=== PATIENT | male | born 1955 | race Caucasian/White ===

== ENCOUNTER 2019-08-19 14:06 | Emergency (ER) | payer SELFPAY ==
[2019-08-19] MEDS ORDERED: NITROGLYCERIN 0.4 MG 25 EA TAB SL ONE (14:14)
[2019-08-19] MEDS ORDERED: ASPIRIN TABLET 325 MG TAB PO ONE (14:19)
[2019-08-19] MEDS ORDERED: NITROGLYCERIN/D5W IV 50,000 MCG in PREMIX BOTTLE 1 BOTTLE IVS ONE (14:19)
[2019-08-19] MEDS ORDERED: CLOPIDOGREL 75 MG TAB PO ONE (14:19)
[2019-08-19] MEDS ORDERED: TENECTEPLASE 50 MG VIAL ONE (14:37)
--- NOTE | 2019-08-19 14:37 | RAD ---
EXAM DESCRIPTION: Chest,1 View CLINICAL HISTORY: 64 years Male, chest pain COMPARISON: None available. TECHNIQUE: AP radiograph of the chest was obtained. FINDINGS: Trachea is midline.The cardiomediastinal silhouette is normal in size. The pulmonary vasculature is within normal limits.The lungs are clear with no acute consolidation.No evidence of pleural effusions. Subacute left-sided rib fractures. IMPRESSION: No acute cardiopulmonary process. Electronically signed by: Aniyah Wheeler MD 08/19/2019 2:35 PM CDT
[2019-08-19] MEDS ORDERED: NITROGLYCERIN/D5W IV 250 ML IVS ONE (14:40)
[2019-08-19] MEDS ORDERED: HEPARIN SODIUM (PORCINE) 10,000 UNITS/ML VIAL ONE (14:41)
[2019-08-19] MEDS ORDERED: HEPARIN PREMIX 500 ML ONE (14:41)
[2019-08-19] MEDS ORDERED: TENECTEPLASE 50 MG VIAL IV ONE (14:59)
[2019-08-19] MEDS ORDERED: HEPARIN PREMIX 25,000 UNITS in PREMIX BAG 1 BAG IVS ONE (15:02)
--- NOTE | 2019-08-19 15:09 | ED.PDOC ---
History of Present Illness - General Chief Complaint: Chest Pain/TX Stated Complaint: CP radiating to L shoudler and jaws Time Seen by Provider: 08/19/19 14:12 Exam Limitations: no limitations - History of Present Illness Initial Comments: The patient is a 64-year-old male presented emergency room secondary to chest pain. He has had intermittent chest pain since last night. It is currently severe 8 out of 10. He does feel short of breath. No history of any cardiac, aortic or pulmonary emboli history. No fever. He does have a history of asthma. No syncope. He does not smoke. He did in the distant past. He denies drug use. Chest pain is substernal. It is worse with some activity. Again this to started last night. Timing/Duration: getting worse, other - 16 hours intermittent Severity: severe Improving Factors: medication - Nitro Worsening Factors: movement Associated Symptoms: chest pain, shortness of breath Allergies/Adverse Reactions: Allergies NO KNOWN ALLERGY Allergy (Verified 08/19/19 14:28) Home Medications: Ambulatory Orders Albuterol Inhaler [Ventolin Hfa Inhaler] 1 puff INH PRN PRN 01/15/16 Multiple Vitamins W/ Minerals [Centrum Silver] 1 tab PO DAILY 01/15/16 Review of Systems - Review of Systems Constitutional: States: diaphoresis EENTM: States: no symptoms reported Respiratory: States: short of breath Cardiology: States: chest pain Gastrointestinal/Abdominal: States: no symptoms reported Genitourinary: States: no symptoms reported Musculoskeletal: States: no symptoms reported Skin: States: no symptoms reported Neurological: States: no symptoms reported Endocrine: States: no symptoms reported All other Systems: No Change from Baseline Past Medical History (General) - Patient Medical History Hx Seizures: No Hx Stroke: No Hx Dementia: No Hx Asthma: Yes Hx of COPD: No Hx Cardiac Disorders: No Hx Congestive Heart Failure: No Hx Pacemaker: No Hx Hypertension: No Hx Thyroid Disease: No Hx Diabetes: No Hx Gastroesophageal Reflux: No Hx Renal Disease: No Hx Cancer: No Hx of HIV: No Hx Hepatitis C: No Hx MRSA: No Surgical History: appendectomy - Vaccination History Hx Tetanus, Diphtheria Vaccination: Yes - in the last 5 years from 2016 Hx Influenza Vaccination: No Hx Pneumococcal Vaccination: No - Social History Hx Tobacco Use: No Hx Alcohol Use: Yes Hx Substance Use: No Hx Substance Use Treatment: No Hx Depression: No - Female History Patient is a Female of Child Bearing Age (10 -59 yrs old): No Patient : No Family Medical History - Family History Mother Family History: No Known Living Status: Still Living Physical Exam - Physical Exam General Appearance: Alert, Obvious distress, Ill Appearing Eye Exam: bilateral normal Ears, Nose, Throat: hearing grossly normal, normal ENT inspection Neck: full range of motion, supple, other - The patient does have significant JVD Respiratory: lungs clear, no respiratory distress, no accessory muscle use, other - The mild scattered wheezing Cardiovascular/Chest: normal peripheral pulses, regular rate, rhythm, no edema Peripheral Pulses: radial,right: 2+, radial,left: 2+ Gastrointestinal/Abdominal: non tender, soft Rectal Exam: deferred Back Exam: no CVA tenderness, no vertebral tenderness Extremity: normal range of motion, non-tender, normal inspection, no pedal edema, normal capillary refill 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 Progress - Progress Progress: 08/19/19 15:10 The patient is a 64-year-old male presented emergency room secondary to an acute ST segment elevation myocardial infarction. The patient was defibrillated during the incident of V. fib. He immediately received a dose of TNKase after and IV heparin. He has been started on a nitroglycerin drip. He reports he is currently having no chest pain. He is receiving supplemental oxygen. He has received aspirin. He has not yet received any Plavix. He is not on any antiarrhythmics currently. The patient is being transferred to [facility] for higher level of care. 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 Vital signs are remaining stable. The patient is going by helicopter. Critical care time spent is [address] elevation myocardial infarction with associated life-threatening arrhythmia. - Results/Orders Results/Orders: 08/19/19 14:19 Nitroglycerin/D5w IV 50,000 mcg Premix Bottle 1 bottle IVS ONCE 05/01/20 14:30 EKG STAT 08/19/19 15:00 EKG STAT Laboratory Results - last 24 hr 08/19/19 08/19/19 08/19/19 14:23 14:23 14:23 WBC 7.9 RBC 5.00 Hgb 15.0 Hct 45.4 MCV 90.7 MCH 30.1 MCHC 33.1 RDW 14.5 Plt Count 292 MPV 8.1 Absolute Neuts (auto) 5.50 Absolute Lymphs (auto) 1.10 Absolute Monos (auto) 0.90 H Absolute Eos (auto) 0.30 Absolute Basos (auto) 0.10 Neutrophils % 69.6 Lymphocytes % 13.6 L Monocytes % 11.5 H Eosinophils % 4.0 Basophils % 1.3 PT 9.7 INR < 1.00 PTT (SP) 21.9 D-Dimer, Quantitative 149 Sodium 139 Potassium 4.1 Chloride 108 Carbon Dioxide 23 Anion Gap 12.1 BUN 16 Creatinine 0.98 BUN/Creatinine Ratio 16.3 Random Glucose 92 Serum Osmolality 278.4 Calcium 9.2 Magnesium 1.8 Total Bilirubin 0.5 AST 30 ALT 18 Alkaline Phosphatase 58 Creatine Kinase 219 H* CK-MB (CK-2) 27.8 H* CK-MB (CK-2) % 12.69 H Troponin I 0.79 H* B-Natriuretic Peptide 16.1 Serum Total Protein 6.9 Albumin 3.9 Globulin 3.0 Albumin/Globulin Ratio 1.3 Initial EKG shows slight ST elevation in inferior leads as well as ST depression and most lateral leads. Normal sinus rhythm. On telemetry patient went into V. tach and then V. fib over the course of less than a minute. Final read on chest x-ray is still pending however I see no evidence of any overt pneumonia, obvious fluid overload or pneumothorax. Departure - Departure Clinical Impression: Ventricular fibrillation ST elevation myocardial infarction (STEMI) Qualifiers: Involved coronary artery: unspecified coronary artery Qualified Code(s): I21.3 - ST elevation (STEMI) myocardial infarction of unspecified site Disposition: Transfer to Hospital Condition: Poor Departure Forms: ED Discharge - Pt. Copy, Patient Portal Self Enrollment Referrals: Juan A Nielson MD [Primary Care Provider] - 1-2 Weeks Home Medications: Ambulatory Orders Albuterol Inhaler [Ventolin Hfa Inhaler] 1 puff INH PRN PRN 09/27/16 Multiple Vitamins W/ Minerals [Centrum Silver] 1 tab PO DAILY 01/15/16 Transfer to Outside Facility - Transfer Information Decision to Transfer Date: 08/19/19 Decision to Transfer Time: 15:12 Reason for Transfer: required specialist not available Accepting Provider:: dr briones/jose Accepting Facility: [facility]
[2019-08-19] MEDS ORDERED: HEPARIN SODIUM (PORCINE) 5,000 U/ML VIAL IV ONE ×2 (15:13→15:17)
[2019-08-19] MEDS: NITROGLYCERIN 0.4 MG 25 EA TAB SL ONE (15:16)
[2019-08-19 16:22] VITALS: BP 123/52; TEMP 97.6; O2SAT 92
== END 2019-08-19 16:00 | disposition short-term general hospital (02) ==
LOC: ER 14:06
DX: I49.01 Ventricular fibrillation (principal); I21.3 ST elevation (STEMI) myocardial infarction of unspecified site; J45.909 Unspecified asthma, uncomplicated
CPT/HCPCS: 36415; 71045; 80053; 82550; 82553; 83735; 83880; 84484; 85025; 85379; 85610; 85730; 93005; J1644; J3101

== ENCOUNTER 2019-09-07 13:56 | Emergency (ER) | payer SELFPAY ==
--- NOTE | 2019-09-07 14:09 | ED.PDOC ---
History of Present Illness - General Time Seen by Provider: 09/07/19 14:05 Source: patient, RN notes reviewed, Vital Signs reviewed Exam Limitations: no limitations - History of Present Illness Initial Comments: 64 y/o male with STEMI and RCA stents x 3 two weeks ago presents to the ER with weakness, feeling like he is going to black out, and nausea. 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 He said it went fairly well but later became very nauseated. He says he has been taking his medications as directed. Currently doesn't smoke, drink, or use illicit drugs. Timing/Duration: 24 hours Severity: moderate Location: other - back of neck feels tight, feels like he will pass out Activities at Onset: activity Prior Chest Pain/Cardiac Workup: cardiac cath, heart attack - 2 weeks ago Improving Factors: rest Worsening Factors: other - standing after sitting or laying Nitro Today/Relief: 0.4 mg x 3, no relief Aspirin Treatment Today: 81 mg x 1 Associated Symptoms: nausea/vomiting - no vomiting, feels faint Allergies/Adverse Reactions: Allergies NO KNOWN ALLERGY Allergy (Verified 08/19/19 14:28) Home Medications: Ambulatory Orders Albuterol Inhaler [Ventolin Hfa Inhaler] 1 puff INH PRN PRN 01/15/16 Multiple Vitamins W/ Minerals [Centrum Silver] 1 tab PO DAILY 01/15/16 Aspirin [Aspirin Childrens] PO DAILY 09/07/19 Carvedilol PO DAILY 09/07/19 Lisinopril PO DAILY 09/07/19 Review of Systems - Review of Systems Constitutional: States: weakness EENTM: States: no symptoms reported Respiratory: States: no symptoms reported Cardiology: States: syncope - presyncope Gastrointestinal/Abdominal: States: nausea Genitourinary: States: no symptoms reported Musculoskeletal: States: neck pain - tightness Skin: States: no symptoms reported, other Neurological: States: weakness Past Medical History (General) - Patient Medical History Hx Seizures: No Hx Stroke: No Hx Dementia: No Hx Asthma: Yes Hx of COPD: No Hx Cardiac Disorders: No Hx Congestive Heart Failure: No Hx Pacemaker: No Hx Hypertension: No Hx Thyroid Disease: No Hx Diabetes: No Hx Gastroesophageal Reflux: No Hx Renal Disease: No Hx Cancer: No Hx of HIV: No Hx Hepatitis C: No Hx MRSA: No - Vaccination History Hx Tetanus, Diphtheria Vaccination: Yes - in the last 5 years from 2016 Hx Influenza Vaccination: No Hx Pneumococcal Vaccination: No - Social History Hx Tobacco Use: No Hx Alcohol Use: Yes Hx Substance Use: No Hx Substance Use Treatment: No Hx Depression: No - Female History Patient : No Family Medical History - Family History Mother Family History: No Known Living Status: Still Living Physical Exam - Physical Exam General Appearance: Anxious, Frail, No apparent distress Eyes, Ears, Nose, Throat Exam: PERRL/EOMI, normal ENT inspection Neck: full range of motion, supple Respiratory: chest non-tender, lungs clear, normal breath sounds, no respiratory distress, no accessory muscle use Cardiovascular/Chest: regular rate, rhythm, no edema, no JVD, no murmur Gastrointestinal/Abdominal: normal bowel sounds, non tender, soft, no organomegaly, no pulsatile mass Extremity: normal range of motion, non-tender, no pedal edema, no calf tenderness Skin Exam: rash - ecchymosis R humerus area Progress - Progress Progress: 09/07/19 14:19 Now patient says he had sex after taking viagra and then when he had neck pain/tightness he took ntg 09/07/19 15:11 Creatinine 0.98 on 08/19/19 and today it is 2.46 09/07/19 15:14 updated patient about renal failure and elevated troponin - Results/Orders Results/Orders: 1402 EKG NSR rate 73, no ST abnormalities, no STEMI, L atrial enlargement, QTc 429 Departure - Departure Clinical Impression: Hypotension due to drugs, Dehydration after exertion, JANIS (acute kidney injury), Stented coronary artery Disposition: Admit Patient Condition: Fair Referrals: Juan A Nielson MD [Primary Care Provider] - 1-2 Weeks Home Medications: Ambulatory Orders Albuterol Inhaler [Ventolin Hfa Inhaler] 1 puff INH PRN PRN 01/15/16 Multiple Vitamins W/ Minerals [Centrum Silver] 1 tab PO DAILY 01/15/16 Aspirin [Aspirin Childrens] PO DAILY 09/07/19 Carvedilol PO DAILY 09/07/19 Lisinopril PO DAILY 09/07/19
[2019-09-07 14:23] VITALS: TEMP 97.8
[2019-09-07] MEDS: SODIUM CHLORIDE 0.9% 1000ML 1,000 ML IVS PRN (14:30)
[2019-09-07] MEDS: ONDANSETRON INJ 4 MG/2 ML VIAL IV ONE (14:31)
[2019-09-07] MEDS: SODIUM CHLORIDE 0.9% (FLUSH) 10 ML SYG IV PRN (14:31)
--- NOTE | 2019-09-07 14:40 | RAD ---
Study: Single Frontal Radiograph of the Chest. Indication:weakness, recent STEMI Comparison: August 19, 2019 Impression: Cardiomegaly. Mild left basilar atelectasis. Mild blunting left costophrenic angle which may reflect scarring or tiny pleural effusion. No pneumothorax. No acute osseous abnormality. Electronically signed by: Sergio Kulkarni MD 09/07/2019 2:39 PM CDT
[2019-09-07 16:58] VITALS: BP 128/71; O2SAT 96
== END 2019-09-07 16:48 | disposition home or self-care (01) ==
LOC: ER 13:56
DX: E86.0 Dehydration (principal); N17.9 Acute kidney failure, unspecified; I95.2 Hypotension due to drugs; I25.2 Old myocardial infarction; J45.909 Unspecified asthma, uncomplicated; Z79.82 Long term (current) use of aspirin; Z98.61 Coronary angioplasty status
CPT/HCPCS: 36415; 71045; 80048; 80076; 82550; 82553; 84484; 85025; 85610; 85730; 93005; 94760; A4216; J2405; J7030

== ENCOUNTER 2020-03-12 10:43 | Emergency (ER) | payer SELFPAY ==
[2020-03-12] MEDS ORDERED: SULFA/TRIMETH 800/160 (DS) TAB 1 EA TAB PO ONE (11:07)
[2020-03-12] MEDS ORDERED: AMOXICILLIN & POT CLAVULANATE 875 MG TAB PO ONE (11:08)
--- NOTE | 2020-03-12 11:10 | ED.PDOC ---
History of Present Illness - General Chief Complaint: General Stated Complaint: Leg pain Time Seen by Provider: 03/12/20 11:07 Source: patient Exam Limitations: no limitations - History of Present Illness Initial Comments: The patient is a 64-year-old male presented emergency room secondary to bilateral lower extremity cellulitis of about 2 to 3 days duration. He does have bilateral inguinal lymphadenopathy as well. There is no evidence of abscess formation and no open draining wound. He does have a dime size area of impetigo over the left bruno. No areas of infection otherwise. It is causing him some discomfort. He denies fevers. Timing/Duration: other - 3 days Severity: moderate Improving Factors: nothing Worsening Factors: nothing Associated Symptoms: denies symptoms Allergies/Adverse Reactions: Allergies NO KNOWN ALLERGY Allergy (Verified 08/19/19 14:28) Home Medications: Ambulatory Orders Albuterol Inhaler [Ventolin Hfa Inhaler] 1 puff INH PRN PRN 01/15/16 Multiple Vitamins W/ Minerals [Centrum Silver] 1 tab PO DAILY 01/15/16 Aspirin [Aspirin Childrens] PO DAILY 09/07/19 Carvedilol PO DAILY 09/07/19 Lisinopril PO DAILY 09/07/19 Amoxicillin & Pot Clavulanate [Augmentin Tab] 875 mg PO BID #20 tab 03/12/20 Sulfa/Trimeth 800/160 (Ds) Tab [Bactrim DS Tab] 1 ea PO BID #20 tab 03/12/20 Review of Systems - Review of Systems Constitutional: States: no symptoms reported EENTM: States: no symptoms reported Respiratory: States: no symptoms reported Cardiology: States: no symptoms reported Gastrointestinal/Abdominal: States: no symptoms reported Genitourinary: States: see HPI Musculoskeletal: States: no symptoms reported Skin: States: see HPI Neurological: States: no symptoms reported Endocrine: States: no symptoms reported All other Systems: No Change from Baseline Past Medical History (General) - Patient Medical History Hx Seizures: No Hx Stroke: No Hx Dementia: No Hx Asthma: Yes Hx of COPD: No Hx Cardiac Disorders: No Hx Congestive Heart Failure: No Hx Pacemaker: No Hx Hypertension: No Hx Thyroid Disease: No Hx Diabetes: No Hx Gastroesophageal Reflux: No Hx Renal Disease: No Hx Cancer: No Hx of HIV: No Hx Hepatitis C: No Hx MRSA: No - Vaccination History Hx Tetanus, Diphtheria Vaccination: Yes - in the last 5 years from 2016 Hx Influenza Vaccination: No Hx Pneumococcal Vaccination: No - Social History Hx Tobacco Use: No Hx Alcohol Use: Yes Hx Substance Use: No Hx Substance Use Treatment: No Hx Depression: No - Female History Patient : No Family Medical History - Family History Mother Family History: No Known Living Status: Still Living Physical Exam - Physical Exam General Appearance: Alert, No apparent distress Eye Exam: bilateral normal Ears, Nose, Throat: hearing grossly normal, normal pharynx Neck: non-tender, supple Respiratory: no respiratory distress, no accessory muscle use Cardiovascular/Chest: normal peripheral pulses, no edema Peripheral Pulses: radial,right: 2+, radial,left: 2+, dorsalis pedis,right: 2+, dorsalis pedis,left: 2+ Gastrointestinal/Abdominal: non tender, soft, other - The patient does have inguinal lymphadenopathy bilaterally. 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 Progress - Progress Progress: 03/12/20 11:09 The patient is a 64-year-old male presenting with bilateral lower extremity cellulitis of the legs and some impetigo. Patient is going to be placed on Bactrim and Augmentin. He needs to take a picture daily with his cell phone to make sure that it is not worsening and starting to improve after 48 hours. I do want him to follow-up with his primary care doctor in 2 to 3 days for a repeat evaluation. Obviously if he is worsening then he needs to return h ere for reevaluation and possible IV antibiotic therapy. Motrin or Advil can be used for discomfort. ER warnings are given. love villalob[address] [id number] Departure - Departure Clinical Impression: Impetigo, Bilateral lower leg cellulitis Disposition: Discharge to Home or Self Care Condition: Fair Departure Forms: ED Discharge - Pt. Copy, Patient Portal Self Enrollment Instructions: Cellulitis (Skin Infection), Adult (DC) Diet: regular diet Activity: increase activity as tolerated Referrals: Juan A Nielson MD [Primary Care Provider] - 1-2 Weeks Prescriptions: Amoxicillin & Pot Clavulanate [Augmentin Tab] 875 mg PO BID #20 tab Sulfa/Trimeth 800/160 (Ds) Tab [Bactrim DS Tab] 1 ea PO BID #20 tab Home Medications: Ambulatory Orders Albuterol Inhaler [Ventolin Hfa Inhaler] 1 puff INH PRN PRN 01/15/16 Multiple Vitamins W/ Minerals [Centrum Silver] 1 tab PO DAILY 01/15/16 Aspirin [Aspirin Childrens] PO DAILY 09/07/19 Carvedilol PO DAILY 09/07/19 Lisinopril PO DAILY 09/07/19 Amoxicillin & Pot Clavulanate [Augmentin Tab] 875 mg PO BID #20 tab 03/12/20 Sulfa/Trimeth 800/160 (Ds) Tab [Bactrim DS Tab] 1 ea PO BID #20 tab 03/12/20 Additional Instructions: The patient is a 64-year-old male presenting with bilateral lower extremity cellulitis of the legs and some impetigo. Patient is going to be placed on Bactrim and Augmentin. He needs to take a picture daily with his cell phone to make sure that it is not worsening and starting to improve after 48 hours. I do want him to follow-up with his primary care doctor in 2 to 3 days for a repeat evaluation. Obviously if he is worsening then he needs to return here for reevaluation and possible IV antibiotic therapy. Motrin or Advil can be used for discomfort. ER warnings are given.
[2020-03-12 11:44] VITALS: BP 113/77; TEMP 97; O2SAT 96
== END 2020-03-12 11:54 | disposition home or self-care (01) ==
LOC: ER 10:43
DX: L01.00 Impetigo, unspecified (principal); L03.115 Cellulitis of right lower limb; L03.116 Cellulitis of left lower limb; J45.909 Unspecified asthma, uncomplicated; Z79.82 Long term (current) use of aspirin; Z79.899 Other long term (current) drug therapy

== ENCOUNTER 2020-03-21 09:48 | Emergency (ER) | payer SELFPAY ==
[2020-03-21] MEDS ORDERED: ALUM & MAG HYDROX-SIMETHICONE 30 ML, LIDOCAINE VISCOUS 2% 15 ML PO ONE ×2 (09:55)
[2020-03-21] MEDS ORDERED: LIDOCAINE HCL 2% (MOUTH-THROAT) 15 ML UD ONE (09:57)
[2020-03-21] MEDS ORDERED: ALUM & MAG HYDROX-SIMETHICONE 30 ML UD ONE (09:58)
[2020-03-21] MEDS ORDERED: NITROGLYCERIN 0.4 MG 25 EA TAB SL ONE (10:16)
--- NOTE | 2020-03-21 10:31 | ED.PDOC ---
History of Present Illness - General Chief Complaint: Chest Pain/VA Stated Complaint: chest pain Time Seen by Provider: 03/21/20 09:50 Source: patient Exam Limitations: no limitations - History of Present Illness Initial Comments: Patient is a 64-year-old male presented emergency room secondary to he reports fairly sudden onset of chest discomfort and back pain about 2 hours prior to arrival. He had been fine prior to that. He does have a significant history of coronary artery disease and did actually code earlier in the year here at the hospital. The patient was seen recently here by me for cellulitis of bilateral lower extremities and started on Augmentin and Bactrim at the time. He has his a atorvastatin on hold secondary to the antibiotic use. He has not historically had issues with reflux problems. No nausea or vomiting. He does feel little short of breath. No anterior chest wall tenderness to palpation but he does have very significant tenderness to palpation over the left rhomboid muscle. Palpation of this does at least partly exacerbate the chest pain. The patient does take aspirin and Plavix and did take 2 aspirin this morning when t his started. Timing/Duration: 1-3 hours Severity: moderate Improving Factors: nothing Worsening Factors: nothing Associated Symptoms: chest pain, shortness of breath - Mild Allergies/Adverse Reactions: Allergies NO KNOWN ALLERGY Allergy (Verified 08/19/19 14:28) Home Medications: Ambulatory Orders Aspirin [Aspirin Childrens] 162 mg PO DAILY 09/07/19 Carvedilol 6.25 mg PO DAILY 03/21/20 Clopidogrel Bisulfate 75 mg PO DAILY 03/21/20 Lisinopril 10 mg PO DAILY 03/21/20 Multiple Vitamin [Multivitamin] 1 tab PO DAILY 03/21/20 Review of Systems - Review of Systems Constitutional: States: no symptoms reported EENTM: States: no symptoms reported Respiratory: States: short of breath - Mild Cardiology: States: chest pain Gastrointestinal/Abdominal: States: no symptoms reported Genitourinary: States: no symptoms reported Musculoskeletal: States: back pain - Upper left Skin: States: no symptoms reported Neurological: States: anxiety Endocrine: States: no symptoms reported All other Systems: No Change from Baseline Past Medical History (General) - Patient Medical History Hx Seizures: No Hx Stroke: No Hx Dementia: No Hx Asthma: Yes Hx of COPD: No Hx Cardiac Disorders: Yes - cardiac arrest 6 mo's ago Hx Congestive Heart Failure: No Hx Pacemaker: No Hx Hypertension: No Hx Thyroid Disease: No Hx Diabetes: No Hx Gastroesophageal Reflux: No Hx Renal Disease: No Hx Cancer: No Hx of HIV: No Hx Hepatitis C: No Hx MRSA: No Surgical History: other - Vaccination History Hx Tetanus, Diphtheria Vaccination: Yes - in the last 5 years from 2016 Hx Influenza Vaccination: No Hx Pneumococcal Vaccination: No - Social History Hx Tobacco Use: No Hx Chewing Tobacco Use: No Hx Alcohol Use: Yes Hx Substance Use: No Hx Substance Use Treatment: No Hx Depression: No Hx Physical Abuse: No Hx Emotional Abuse: No Hx Suspected Abuse: No - Female History Patient : No Family Medical History - Family History Mother Family History: No Known Living Status: Still Living Physical Exam - Physical Exam General Appearance: Alert, Anxious Eye Exam: bilateral normal Ears, Nose, Throat: hearing grossly normal, normal ENT inspection Neck: full range of motion, supple Respiratory: lungs clear, normal breath sounds, no respiratory distress, no accessory muscle use, other - See history of present illness Cardiovascular/Chest: normal peripheral pulses, regular rate, rhythm, no edema Peripheral Pulses: radial,right: 2+, radial,left: 2+ Gastrointestinal/Abdominal: non tender, soft Rectal Exam: deferred Back Exam: no CVA tenderness, no vertebral tenderness Extremity: normal range of motion, non-tender, no pedal edema, normal capillary refill 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 Comments: Vital Signs - 24 hr 03/21/20 03/21/20 03/21/20 09:53 10:00 10:30 Temperature 96.0 F L Pulse Rate [ 85 81 81 left brachial] Respiratory 18 18 15 Rate Blood Pressure 177/104 155/87 121/77 [left brachial] O2 Sat by Pulse 96 97 97 Oximetry Vital Signs - 24 hr 03/21/20 03/21/20 03/21/20 09:53 09:55 10:00 Temperature 96.0 F L Pulse Rate [ 85 81 left brachial] Respiratory 18 18 18 Rate Blood Pressure 177/104 155/87 [left brachial] O2 Sat by Pulse 96 97 Oximetry 03/21/20 03/21/20 03/21/20 10:30 11:00 12:00 Temperature 97.0 F L Pulse Rate [ 81 82 71 left brachial] Respiratory 15 16 14 Rate Blood Pressure 121/77 130/75 143/84 [left brachial] O2 Sat by Pulse 97 97 95 Oximetry 03/21/20 13:00 Temperature Pulse Rate [ 75 left brachial] Respiratory 16 Rate Blood Pressure 137/82 [left brachial] O2 Sat by Pulse 96 Oximetry Progress - Progress Progress: 03/21/20 14:10 The patient is a 64-year-old male presented to emergency room with what appears to be a non-ST elevation myocardial infarction. The patient is doing better after nitroglycerin. Pain is come down from an 8 to a 2. The patient has received Lovenox, Plavix, aspirin and nitroglycerin. EKG is showing no acute changes. Vital signs have remained stable. He is much more comfortable at this point. The patient is being transferred to a larger hospital with cardiology for specialty evaluation given his cardiac history. Patient will remain n.p.o. for now. Transferring for higher level of care. Acceptance is greatly appreciated. love villalobos [phone] - Results/Orders Results/Orders: Chest x-ray shows no definitive acute pathology. There is rib fractures to the posterior left of an indeterminate age. The lateral abnormality noted on x-ray is most likely a tissue fold. Initial EKG showed normal sinus rhythm at 82 bpm. Very mild right axis deviation. Normal R wave progression. No ST segment or T wave changes indicative of acute ischemia. Normal QT interval. Mild left atrial dilation. Repeat EKG is at 77 bpm and a normal sinus rhythm. No evidence of any acute ST segment or T wave changes when compared to previous. Laboratory Tests 03/21/20 03/21/20 03/21/20 10:05 10:05 10:05 WBC 11.0 H RBC 4.22 L Hgb 12.9 L Hct 37.5 L MCV 88.8 MCH 30.6 MCHC 34.4 RDW 14.2 Plt Count 590 H MPV 6.6 L Absolute Neuts (auto) 9.30 H Absolute Lymphs (auto) 0.90 L Absolute Monos (auto) 0.70 Absolute Eos (auto) 0.10 Absolute Basos (auto) 0.10 Neutrophils % 84.4 H Lymphocytes % 8.0 L Monocytes % 6.1 Eosinophils % 0.6 L Basophils % 0.9 PT 10.4 INR 1.05 PTT (SP) 23.1 D-Dimer, Quantitative 439.0 H Sodium 138 Potassium 3.8 Chloride 100 L Carbon Dioxide 26 Anion Gap 15.8 BUN 23 H Creatinine 1.15 BUN/Creatinine Ratio 20.0 Random Glucose 93 Serum Osmolality 279.1 Calcium 9.2 Magnesium 2.5 Total Bilirubin 0.3 AST 19 ALT 38 Alkaline Phosphatase 92 Creatine Kinase 96 CK-MB (CK-2) 5.5 H* CK-MB (CK-2) % Not Reportable Troponin I 0.04 B-Natriuretic Peptide 31.1 Serum Total Protein 7.7 Albumin 3.9 Globulin 3.8 H Albumin/Globulin Ratio 1.0 L Amylase 104 H Lipase 39 03/21/20 12:55 WBC RBC Hgb Hct MCV MCH MCHC RDW Plt Count MPV Absolute Neuts (auto) Absolute Lymphs (auto) Absolute Monos (auto) Absolute Eos (auto) Absolute Basos (auto) Neutrophils % Lymphocytes % Monocytes % Eosinophils % Basophils % PT INR PTT (SP) D-Dimer, Quantitative Sodium Potassium Chloride Carbon Dioxide Anion Gap BUN Creatinine BUN/Creatinine Ratio Random Glucose Serum Osmolality Calcium Magnesium Total Bilirubin AST ALT Alkaline Phosphatase Creatine Kinase 88 CK-MB (CK-2) 6.6 H* CK-MB (CK-2) % Not Reportable Troponin I 0.14 H* B-Natriuretic Peptide Serum Total Protein Albumin Globulin Albumin/Globulin Ratio Amylase Lipase Departure - Departure Clinical Impression: NSTEMI (non-ST elevated myocardial infarction) Disposition: Transfer to Hospital Departure Forms: ED Discharge - Pt. Copy, Patient Portal Self Enrollment Instructions: DI for Chest Pain Referrals: Juan A Nielson MD [Primary Care Provider] - 1-2 Weeks Home Medications: Ambulatory Orders Aspirin [Aspirin Childrens] 162 mg PO DAILY 09/07/19 Carvedilol 6.25 mg PO DAILY 03/21/20 Clopidogrel Bisulfate 75 mg PO DAILY 03/21/20 Lisinopril 10 mg PO DAILY 03/21/20 Multiple Vitamin [Multivitamin] 1 tab PO DAILY 03/21/20 Transfer to Outside Facility - Transfer Information Decision to Transfer Date: 03/21/20 Decision to Transfer Time: 14:12 Reason for Transfer: required specialist not available Accepting Provider:: dr ramos Accepting Facility: [facility]
[2020-03-21] MEDS ORDERED: SODIUM CHLORIDE 0.9% 1000ML 1,000 ML IVS ONE (10:52)
[2020-03-21] MEDS ORDERED: MORPHINE SULFATE INJ 10 MG/ML VIAL IV ONE (10:52)
--- NOTE | 2020-03-21 12:05 | RAD ---
EXAM DESCRIPTION: Chest,1 View: CR/DR/XR. CLINICAL HISTORY: 64 years Male chest pain COMPARISON: One view chest x-ray September 06. TECHNIQUE: ONE VIEW PORTABLE. AP 1023 hours, upright position. FINDINGS: Stable fractures in the posterior mid left eighth and ninth ribs. No pneumothorax or pleural effusion. Chronic thickening in the left base. No acute infiltrate. Mild cardiomegaly and normal pulmonary vascularity is stable. Questionable mass inferior to the left scapula may be related to subcutaneous tissue, partially seen on the prior chest x-ray. IMPRESSION: No radiographic evidence of acute cardiopulmonary disease. Stable since September 06. Healing rib fractures posterior mid left eighth and ninth ribs. Electronically signed by: Edgar Torres MD 03/21/2020 12:04 PM [facility]
[2020-03-21] MEDS ORDERED: NITROGLYCERIN 2% 1 GM UD TOP ONE (13:44)
[2020-03-21] MEDS ORDERED: CLOPIDOGREL 75 MG TAB PO ONE (13:45)
[2020-03-21] MEDS ORDERED: ENOXAPARIN SODIUM 80 MG/0.8 ML SYG SUBCU ONE (14:02)
[2020-03-21 15:27] VITALS: BP 136/85; TEMP 97.7; O2SAT 99
== END 2020-03-21 15:26 | disposition short-term general hospital (02) ==
LOC: ER 09:48
DX: I21.4 Non-ST elevation (NSTEMI) myocardial infarction (principal); J45.909 Unspecified asthma, uncomplicated; Z87.81 Personal history of (healed) traumatic fracture; Z86.74 Personal history of sudden cardiac arrest; Z79.82 Long term (current) use of aspirin; Z79.899 Other long term (current) drug therapy; Z79.02 Long term (current) use of antithrombotics/antiplatelets; Z20.828 Contact with and (suspected) exposure to other viral communicable diseases
CPT/HCPCS: 36415; 71045; 80053; 82150; 82550; 82553; 83690; 83735; 83880; 84484; 85025; 85379; 85610; 85730; 87040; 87635; 93005; J1650; J2270; J7030